=== PATIENT | male | born 2000 | race Caucasian/White ===

== ENCOUNTER 2018-04-26 09:11 | Emergency (ER) | payer SELFPAY, OTHER | END 2018-04-26 10:24 | disposition home or self-care (01) | LOC: M ED 09:11 | DX: S92.354A Nondisplaced fracture of fifth metatarsal bone, right foot, initial encounter for closed fracture (principal); X58.XXXA Exposure to other specified factors, initial encounter; Y92.89 Other specified places as the place of occurrence of the external cause | CPT/HCPCS: 73630 ==